=== PATIENT | male | born 1960 | race Two or more races ===

== ENCOUNTER 2019-08-08 22:06 | Emergency (ER) | payer OTHER ==
[~2019-08-08] VITALS: Ht 165.1 cm; Wt 65.0 kg
--- NOTE | 2019-08-08 22:34 | NUR ---
first contact with pt. Pt reports right cheek pain since yesterday. Pt reports having a thread face lift 18 days ago. Pt has some swelling to his right cheek area in triage. pt's aox4. resps even and unlabored. bp/spo2 monitors in place. call light within reach. warm blancket given at this time.
--- NOTE | 2019-08-08 22:49 | NUR ---
pt moved to room 10.
[2019-08-08 23:18] VITALS: BP 166/93
--- NOTE | 2019-08-08 23:18 | NUR ---
pt resting in [facility]. resps even and unlabored. bp/spo2 monitors in place. call light within reach.
--- NOTE | 2019-08-08 23:30 | NUR ---
Patient given discharge instructions and they have confirmed that they understand the instructions. Patient ambulatory with steady gait.
== END 2019-08-08 23:31 | disposition home or self-care (01) ==
LOC: ED 22:34
DX: K02.9 Dental caries, unspecified (principal); E11.9 Type 2 diabetes mellitus without complications
CPT/HCPCS: 99283